=== PATIENT | male | born 2000 | race Hispanic/Latino ===

== ENCOUNTER 2020-09-06 17:43 | Emergency (ER) | payer SELFPAY ==
--- NOTE | 2020-09-06 20:33 | RAD ---
LEFT ELBOW FOUR VIEWS: 09/06/20 There is a fracture of the neck of the radius as it joins the radial head. Displacement is minimal. A joint effusion is present as expected. The proximal ulna appears intact. IMPRESSION: Radial neck fracture. Code T POS: HOME
== END 2020-09-06 18:29 | disposition home or self-care (01) ==
LOC: BURERS 17:43
DX: S52.125A Nondisplaced fracture of head of left radius, initial encounter for closed fracture (principal); S80.211A Abrasion, right knee, initial encounter; V29.9XXA Motorcycle rider (driver) (passenger) injured in unspecified traffic accident, initial encounter
CPT/HCPCS: 24650